=== PATIENT | female | born 1955 | race Caucasian/White ===

== ENCOUNTER 2017-06-17 11:15 | Inpatient (IN) | payer BC ==
[2017-06-16 15:18] LABS: BASOPHILS % (AUTO) 0.6 % (0-1); EOSINOPHILS # (AUTO) 0.2 X10'3 (0-0.9); EOSINOPHILS % (AUTO) 4.2 % (0-6); LYMPHOCYTES # (AUTO) 1.1 X10'3 (1.1-4.8); LYMPHOCYTES % (AUTO) 25.8 % (21-51); MEAN CORPUSCULAR HEMOGLOBIN 30.8 PG (27.0-31.0); MEAN CORPUSCULAR HGB CONC 34.3 % (33.0-36.5); MEAN CORPUSCULAR VOLUME 89.6 FL (78-98); MEAN PLATELET VOLUME 7.9 FL (7.4-10.4); MONOCYTES # (AUTO) 0.3 X10'3 (0-0.9); NEUTROPHILS # (AUTO) 2.6 X10'3 (1.8-7.7); NEUTROPHILS % (AUTO) 62.4 % (42-75); PRE OP HEMATOCRIT 33.5 % (35.0-45.0); PRE OP HEMOGLOBIN 11.5 g/dL (12.0-16.0); PRE OP PLATELET COUNT 349 X10'3 (140-440); RED BLOOD COUNT 3.73 X10'6 (4.20-5.60); RED CELL DISTRIBUTION WIDTH 13.4 % (11.5-14.5)
[2017-06-16 15:36] LABS: ALBUMIN 2.8 G/DL (3.4-5.0); ALBUMIN/GLOBULIN RATIO 0.6 (1.1-1.5); ALKALINE PHOSPHATASE 108 IU/L (46-116); BLOOD UREA NITROGEN 13 MG/DL (7-18); BUN/CREATININE RATIO 14.8 (6.6-38.0); CALCIUM 8.9 MG/DL (8.5-10.1); CHLORIDE 102 MMOL/L (99-107); CREATININE 0.88 MG/DL (0.40-0.90); PRE OP ALT 17 U/L (30-65); PRE OP ANION GAP 6 (8-16); PRE OP AST 23 U/L (10-37); PRE OP BILIRUB, TOTAL 0.5 MG/DL (0.0-1.0); PRE OP GLUCOSE 103 MG/DL (70-104); PRE OP POTASSIUM 3.9 MMOL/L (3.4-5.1); PRE OP SODIUM 138 MMOL/L (135-145); TOTAL CARBON DIOXIDE 30.2 MMOL/L (24-32); TOTAL PROTEIN 7.3 G/DL (6.4-8.2); eGFR 65 ML/MIN
[~2017-06-17] VITALS: Ht 154.9 cm; Wt 51.7 kg
[2017-06-17] VITALS (15 sets, daily range): BP systolic 95–125; BP diastolic 51–79
[~2017-06-17 11:15] MED LIST: ALPR1TAB7 PO; AMIT-189 PO; CYCL-1 PO; DICY10CA88 PO; ESTR0.624 PO; HYDR-3972 PO; METH-603 PO; SENN-74 PO; SUMA100T16 PO; VANCOMYCIN INJ 1000 MG in NORMAL SALINE 250ml IV.SOLN IV ONE; VENL150C58 PO; VENL75TA4 PO; cefazolin/dext.iso 2gm/50ml 50 ML IV ONE; famotidine 20mg tablet PO ONE
[2017-06-17] MEDS: ringers solution, lacted 1,000 ML IV SCH (12:01)
[2017-06-17] MEDS ORDERED: methadone 10mg tablet PO ONE (14:25)
[2017-06-17] MEDS ORDERED: BUPIVAcaine/PF 2.5 mg/ml (0.25%) 30ml vial ONE ×2 (14:57→16:57)
[2017-06-17] MEDS ORDERED: ketorolac trometh. 30mg/ml inj. ONE (14:57)
[2017-06-17] MEDS ORDERED: ROPIVAcaine 0.5% (5mg/ml) 30ml vial ONE ×2 (14:57→16:55)
[2017-06-17] MEDS ORDERED: cloNIDine hcl/PF 100mcg/ml inj ONE (15:39)
[2017-06-17] MEDS ORDERED: meperidine/PF 50mg/ml syringe IV PRN (15:40)
[2017-06-17] MEDS ORDERED: fentaNYL/PF 50MCG/1 ML 2ML syringe IV PRN ×2 (15:40)
[2017-06-17] MEDS ORDERED: morphine 2 MG/ML inj. syringe IV PRN ×2 (15:40)
[2017-06-17] MEDS ORDERED: proCHLORperazine 10 MG/2 ml inj IV PRN (15:40)
[2017-06-17] MEDS ORDERED: ondansetron/PF 4mg/2ml inj IV PRN ×2 (15:40→18:05)
[2017-06-17] MEDS ORDERED: ringers solution, lacted 1,000 ML IV SCH (15:40)
[2017-06-17] MEDS ORDERED: fentaNYL/PF 50MCG/1 ML 2ML syringe ONE (15:43)
[2017-06-17] MEDS ORDERED: midazolam 2 mg/2 ml injection ONE (15:44)
[2017-06-17] MEDS ORDERED: LIDOcaine 2% 5ml jelly ONE (16:57)
[2017-06-17] MEDS ORDERED: propofol inj 20 ML IV ONE (16:57)
[2017-06-17] MEDS ORDERED: dexamethasone sod phosphate 4mg/ml inj. ONE (16:57)
[2017-06-17] MEDS ORDERED: LIDOcaine 1%/PF (10mg/ml) 5ml vial ONE ×2 (16:57)
[2017-06-17] MEDS ORDERED: rocuronium 10mg/ml inj IV ONE (16:57)
[2017-06-17] MEDS ORDERED: ondansetron/PF 4mg/2ml inj ONE (16:58)
[2017-06-17] MEDS ORDERED: oxyCODONE IR 5mg (immed. release) tablet PO PRN (18:05)
[2017-06-17] MEDS ORDERED: diphenhydrAMINE 25mg capsule PO PRN ×2 (18:05)
[2017-06-17] MEDS ORDERED: magnesium hydroxide 30ml (MOM) UD suspension PO PRN (18:05)
[2017-06-17] MEDS ORDERED: sennosides 8.6mg tablet PO PRN (18:05)
[2017-06-17] MEDS ORDERED: HYDROmorphone inj. 0.5 MG/0.5 ML DISP.SYRIN IV PRN ×2 (18:05)
[2017-06-17] MEDS ORDERED: dicyclomine 10 MG capsule PO PRN (18:05)
[2017-06-17] MEDS ORDERED: bisacodyl 10mg suppository rectal RC PRN (18:05)
[2017-06-17] MEDS ORDERED: acetaminophen 325mg tablet PO PRN (18:05)
[2017-06-17] MEDS: celeCOXIB 100mg capsule PO SCH (20:00)
[2017-06-17] MEDS: ketorolac tromethamine 15mg/ml inj. IV SCH (20:00)
[2017-06-17] MEDS: acetaminophen 325mg tablet PO SCH (20:30)
[2017-06-17] MEDS: methadone 10mg tablet PO SCH (20:37)
[2017-06-17] MEDS: potassium cl 20mEq in 1/2 NS 1,000 ML IV SCH (20:38)
[2017-06-17] MEDS: HYDROcodone/acetaminophen 10/325mg tab PO SCH (21:00)
[2017-06-17] MEDS ORDERED: sennosides 8.6mg tablet PO SCH (21:00)
[2017-06-17] MEDS ORDERED: amitryptiline 50mg tablet PO SCH (21:00)
[2017-06-17] MEDS: ALPRAZolam 0.5mg tablet PO SCH (21:58)
[2017-06-17] MEDS: cyclobenzaprine 10mg tablet PO SCH (21:59)
[2017-06-17] MEDS: cefazolin 1gm/NS 100mL 100 ML IV SCH (23:41)
[2017-06-18] MEDS: ketorolac tromethamine 15mg/ml inj. IV SCH ×3 (01:45→13:30)
[2017-06-18 01:55] VITALS: BP 123/69
[2017-06-18] MEDS: acetaminophen 325mg tablet PO SCH ×3 (02:00→13:31)
[2017-06-18] MEDS: potassium cl 20mEq in 1/2 NS 1,000 ML IV SCH ×2 (02:05→05:15)
[2017-06-18] MEDS: oxyCODONE IR 5mg (immed. release) tablet PO PRN ×3 (05:16→14:28)
[2017-06-18 05:55] VITALS: BP 137/76
[2017-06-18 05:57] VITALS: BP 137/76
[2017-06-18 07:28] LABS: BASOPHILS % (AUTO) 0.1 % (0-1); EOSINOPHILS # (AUTO) 0.1 X10'3 (0-0.9); EOSINOPHILS % (AUTO) 1.2 % (0-6); HEMATOCRIT 32.1 % (35.0-45.0); LYMPHOCYTES # (AUTO) 0.6 X10'3 (1.1-4.8); MEAN CORPUSCULAR HEMOGLOBIN 30.5 PG (27.0-31.0); MEAN CORPUSCULAR HGB CONC 34.3 % (33.0-36.5); MEAN CORPUSCULAR VOLUME 88.9 FL (78-98); MEAN PLATELET VOLUME 7.8 FL (7.4-10.4); MONOCYTES # (AUTO) 0.4 X10'3 (0-0.9); MONOCYTES % (AUTO) 7.2 % (2-12); NEUTROPHILS # (AUTO) 4.3 X10'3 (1.8-7.7); NEUTROPHILS % (AUTO) 80.5 % (42-75); PLATELET COUNT 301 X10'3 (140-440); RED BLOOD COUNT 3.61 X10'6 (4.20-5.60); RED CELL DISTRIBUTION WIDTH 12.8 % (11.5-14.5); WHITE BLOOD COUNT 5.3 X10'3 (4.5-11.0)
[2017-06-18 07:46] LABS: ANION GAP 10 (8-16); CHLORIDE 104 MMOL/L (99-107); POTASSIUM 4.6 MMOL/L (3.5-5.1); SODIUM 139 MMOL/L (135-145); TOTAL CARBON DIOXIDE 24.6 MMOL/L (24-32)
[2017-06-18] MEDS: HYDROcodone/acetaminophen 10/325mg tab PO SCH ×2 (07:50→12:02)
[2017-06-18] MEDS: celeCOXIB 100mg capsule PO SCH (07:50)
[2017-06-18] MEDS: cyclobenzaprine 10mg tablet PO SCH ×2 (07:58→12:07)
[2017-06-18] MEDS: methadone 10mg tablet PO SCH ×2 (08:00→12:07)
[2017-06-18] MEDS ORDERED: SUMAtriptan 25 MG tablet PO PRN (08:00)
[2017-06-18] MEDS: ALPRAZolam 0.5mg tablet PO SCH ×3 (08:00→12:02)
[2017-06-18] MEDS ORDERED: estrogen, conjugated 0.625mg tablet PO SCH (08:00)
[2017-06-18] MEDS ORDERED: venlafaxine XR 75mg capsule (Q24H) PO SCH (08:00)
[2017-06-18] MEDS: cefazolin 1gm/NS 100mL 100 ML IV SCH (08:00)
[2017-06-18] MEDS: ringers solution, lacted 1,000 ML IV SCH (08:07)
[2017-06-18] MEDS ORDERED: aspirin 325mg tablet, delayed-release (Ecotrin) PO SCH (08:30)
[2017-06-18 10:00] VITALS: BP 140/81
[2017-06-18] MEDS ORDERED: ASPI-41 PO (13:34)
[2017-06-19] MEDS ORDERED: celeCOXIB 100mg capsule PO SCH (08:00)
[2017-06-19] MEDS ORDERED: acetaminophen 325mg tablet PO PRN (18:05)
== END 2017-06-18 15:00 | disposition home or self-care (01) | DRG 493 ==
LOC: PAS 11:15 → ORTHO 4S 18:05
PROVIDERS: ADMIT Orthopaedic Surgery; ATTEND Orthopaedic Surgery
PROC: 3E0T3BZ Introduction of Anesthetic Agent into Peripheral Nerves and Plexi, Percutaneous Approach (ICD-10-PCS; 2017-06-17)
PROC: 0PSG04Z Reposition Left Humeral Shaft with Internal Fixation Device, Open Approach (ICD-10-PCS; principal; 2017-06-17 15:43)
DX: S42.292A Other displaced fracture of upper end of left humerus, initial encounter for closed fracture (principal); D62 Acute posthemorrhagic anemia; W01.198A Fall on same level from slipping, tripping and stumbling with subsequent striking against other object, initial encounter; K58.0 Irritable bowel syndrome with diarrhea; M41.9 Scoliosis, unspecified; F32.9 Major depressive disorder, single episode, unspecified; F41.9 Anxiety disorder, unspecified; G89.29 Other chronic pain; M19.90 Unspecified osteoarthritis, unspecified site; Z88.6 Allergy status to analgesic agent; Z79.899 Other long term (current) drug therapy; Y93.89 Activity, other specified; Y92.89 Other specified places as the place of occurrence of the external cause; Y99.8 Other external cause status
CPT/HCPCS: 36415; 73060; 76000; 80051; 80053; 85025; 87070; 93005; 97116; 97162; 97530; A4565; A6449; A7000; J0690; J0735; J1100; J1885; J2001; J2250; J2405; J2704; J2795; J3010; J3370; J3490; J7030; J7120